=== PATIENT | male | born 2000 | race Caucasian/White ===

== ENCOUNTER 2025-01-12 23:15 | Emergency (ER) | payer OTHER, SELFPAY ==
--- NOTE | ~2025-01-12 | CT_ITS ---
EXAMINATION: CT abdomen pelvis wo con DATE: 01/13/2025 01:37 INDICATION: Right flank pain. TECHNIQUE: Computed tomography (CT) of the abdomen and pelvis was performed without intravenous contr ast. Automated exposure control and iterative reconstruction technique were employed. The dose-length product was 1910.46 mGy-cm. COMPARISON: None. FINDINGS: The visualized portions of the lung bases are clear without pneumonia or pleural effusion. The heart size is normal. No pericardial effusion. The liver, gallbladder, spleen, pancreas, and adre nal glands are normal. There is mild right hydronephrosis and hydroureter. There is a 4 mm stone in d istal right ureter. There is a 1 mm stone in left kidney. There are no dilated loops of bowel. The ap pendix is normal. There are no pathologically enlarged lymph nodes. There is no free intraperitoneal fluid. There is mild thoracic spondylosis and moderate lower lumbar spondylosis. IMPRESSION: 1. 4 mm stone in distal right ureter with mild right hydronephrosis and hydroureter. 2. 1 mm nonobstructing left kidney stone. Reviewed, dictated and finalized at location A. LET DISTRIBUTOR IMPRESSION: 1. 4 mm stone in distal right ureter with mild right hydronephrosis and hydrour eter. 2. 1 mm nonobstructing left kidney stone.
--- OUTSIDE RECORDS SUMMARY | 2025-01-12 23:18 | XMS_ITS | Referral Summary ---
Author Organization [facility] Address [address] [address] Care Team Providers Care Bilingual Customer Service Name Role Phone Darrell Graff MD Primary Care Provider [phone]- [phone] Source Comments [facility],non-owned Affiliates and Associated Physician Practices is amultiple site organization consisting of ambulatory clinics and hospital sitesin [place], [place], [place] and [place]. This disclosure is being madepursuant to the Care Everywhere program and may not contain all information available regarding this patient. Last updated 18.[facility] Allergies Active Allergy Reactions Criticality Noted Date Comments Apple Rash Medium 06/08/2018 Medications * Be aware that medications may not be up to date on this document. Alwaysverify current medications with the patient. Medication Sig Dispensed Refills Start Date End Date Status Fish Oil OIL Use. Active Active Problems Problem Noted Date Diagnosed Date Hypertriglyceridemia 06/10/2016 Hyperlipidemia 09/20/2013 Overview (09/20/2013): Elevated TG and LDL, instituting lifestyle changes Elevated liver enzymes 09/20/2013 Overview (09/20/2013): ALT 51, liver edge palpable Refer to GI Knee pain 11/27/2012 Social History Tobacco Use Types Packs/Day Years Used Date Smoking Tobacco: Never Smokeless Tobacco: Never Alcohol Use Standard Drinks/Week Comments Not Asked 0 (1 standard drink = 0.6 oz pur e alcohol) Sex and Gender Information Value Date Recorded Sex Assigned at Not on file Gender Identity Not on file Sexual Orientation Not on file Last Filed Vital Signs Vital Sign Reading Time Taken Comments Blood Pressure 122/82 06/08/2018 10:30 AM CDT Pulse 80 06/08/2018 10:30 AM CDT Temperature 36.8 C (98.2 F) 09/02/2016 9:30 PM CDT Respiratory Rate 20 06/08/2018 10:3 0 AM CDT Oxygen Saturation - - Inhaled Oxygen Concentration - - Weight 124.8 kg (275 lb 2.2 oz) 018 10:30 AM CDT Height 178.2 cm (5' 10.16 ) 06/08/2018 10:30 AM CDT Body Mass Index 39.3 06/08/2018 10:30 AM CDT Plan of Treatment Not on file Procedures Procedure Name Priority Date/Time Associated Diagnosis Comments HEPATITIS SCREEN ACUTE Routine 10/04/2013 3:17 PM DAYCARE MANAGER Elevated liver enzymes from Last 3 Months or Most Recently Relevant to Health Maintenance Results * HEPATITIS SCREEN ACUTE (10/04/2013 3:17 PM DAYCARE MANAGER) HAV Antibody IgM Non Reactive Non Reactive 10/04/2013 4:56 PM DAYCARE MANAGER [facility] HBsAg Non Reactive Non Reactive 10/04/2013 4:56 PM DAYCARE MANAGER [facility] HBsAb Non Reactive Non Reactive 10/04/2013 4:56 PM DAYCARE MANAGER [facility] HBc Antibody IgM Non Reactive Non Reactive 10/04/2013 4:56 PM DAYCARE MANAGER [facility] HCV Antibody Screen Non Reactive Non Reactive 10/04/2013 4:56 PM DAYCARE MANAGER [facility] Blood BLOOD SPECIMEN / Unknown Lab Venipuncture / Unknown 10/04/2013 3:17 PM DAYCARE MANAGER 10/04/2013 3:29 PM DAYCARE MANAGER Narrative [facility] - 10/04/2013 4:56 PM DAYCARE MANAGER Nonreactive - Antibodies to HCV were not detected, result does not exclude early acute HCV infection. Stevie Reed MD LAB - CHEMISTRY JUAN C GAGE [facility] [address] [place] [address] from Last 3 Months or Most Recently Relevant to Health Maintenance Care Teams Bilingual Customer Service Relationship Specialty Start Date End Date Darrell Graff MD [address] [place] [id number] PCP - General Pediatrics 10/13/12
--- OUTSIDE RECORDS SUMMARY | 2025-01-12 23:18 | XMS_ITS | Clinical Summary ---
Author Organization [facility] Address [address] [place] [address] Care Team Providers Care Manager Of Project Management Name Role Phone Darrell Graff MD Primary Care Provider +1- [phone] Source Comments [facility],non-owned Affiliates and Associated Physician Practices is amultiple site organization consisting of ambulatory clinics and hospital sitesin [place], [place], [place] and [place]. This disclosure is being madepursuant to the Care Everywhere program and may not contain all information available regarding this patient. Last updated 18.[facility] Allergies Active Allergy Reactions Criticality Noted Date [...] palpable Refer to GI Knee pain 11/27/2012 Family History Medical History Relation Name Comments Hyperlipidemia Father Hyperlipidemia Maternal Grandfather Hypertension Maternal Grandmother Hyperlipidemia Paternal Grandfather Hyperlipidemia Paternal Grandmother Relation Name Status Comments Father Maternal Grandfather Maternal Grandmother Paternal Grandfather Paternal Grandmother Social History Tobacco Use Types Packs/Day Years [...] 06/08/2018 10:30 AM CDT Plan of Treatment Health Maintenance Due Date Last Done Comments HIV SCREENING 2016 HPV VACCINE (1 - Male 3-dose series) 2016 MENINGOCOCCAL (Group B) VACC INE (1 of 2 - Standard) 2017 DTAP/TDAP/TD VACCINES (1 - Tdap) 2020 HEPATITIS B VACCINE (1 of 3 - 19+ 3-dose series) 2020 COVID-19 VACCINE (1 - 2023-2 5 season) 2024 INFLUENZA VACCINE (#1) 2024 DEPRESSION SCREENING 11/21/2024 ZOSTER VACCINE (1 of 2) 2051 HEPATITIS C SCREENING Completed 10/04/2013 HIB VACCINE Aged Out No longer eligi ble based on patient's age to complete this topic MENINGOCOCCAL VACCINE Aged Out No kellen katt eligible based on patient's age to complete this topic PNEUMOCOCCAL VACCINE Aged Out No long er eligible based on patient's age to complete this topic Procedures Procedure Name Priority Date/Time Associated Diagnosis Comments HEPATITIS SCREEN ACUTE Routine 10/04/2013 3:17 PM TELESALES SUPERVISOR Elevated liver enzymes from Last 3 Months or Most Recently Relevant to Health Maintenance Results * HEPATITIS SCREEN ACUTE (10/04/2013 3:17 PM TELESALES SUPERVISOR) HAV Antibody IgM Non Reactive Non Reactive 10/04/2013 4:56 PM TELESALES SUPERVISOR [facility] HBsAg Non Reactive Non Reactive 10/04/2013 4:56 PM TELESALES SUPERVISOR [facility] HBsAb Non Reactive Non Reactive 10/04/2013 4:56 PM [facility] HBc Antibody IgM Non Reactive Non Reactive 10/04/2013 4:56 PM [facility] HCV Antibody Screen Non Reactive Non Reactive 10/04/2013 4:56 PM [facility] Blood BLOOD SPECIMEN / Unknown Lab Venipuncture / Unknown 10/04/2013 3:17 PM TELESALES SUPERVISOR 10/04/2013 3:29 PM TELESALES SUPERVISOR Narrative [facility] - 10/04/2013 4:56 PM TELESALES SUPERVISOR Nonreactive - Antibodies to HCV were not detected, result does not exclude early acute HCV infection. Stevie Reed MD LAB - CHEMISTRY JUAN C GAGE [facility] [address] [place] [address] from Last 3 Months or Most Recently Relevant to Health Maintenance Care Teams Manager Of Project Management Relationship Specialty Start Date End Date Darrell Graff MD [address] [place] [address] [place] [id number] PCP - General Pediatrics 10/13/12
--- OUTSIDE RECORDS SUMMARY | 2025-01-12 23:18 | XMS_ITS | Clinical Summary ---
Author Organization [facility] Address [address] [place] [address] Care Team Providers Care Manager Camp Name Role Phone Unavailable Primary Care Provider Unavailabl e Allergies No known active allergies Social History Tobacco Use Types Packs/Day Years Used Date Smoking Tobacco: Never Smokeless Tobacco: Never Alcohol Use Standard Drinks/Week Comments No 0 (1 standard drink = 0.6 oz pur e alcohol) Sex and Gender Information Value Date Recorded Sex Assigned at Not on file Legal Sex Male 4:15 PM CDT Gender Identity Not on file Sexual Orientation Not on file Last Filed Vital Signs Vital Sign Reading Time Taken Comments Blood Pressure 146/69 08/05/2018 4:36 AM CDT Pulse 68 08/05/2018 4:36 AM CDT Temperature 37.1 C (98.8 F) 08/04/2018 11:11 PM CDT Respiratory Rate 16 08/05/2018 4:36 AM CDT Oxygen Saturation 100% 08/05/2018 4:36 AM CDT Inhaled Oxygen Concentration - - Weight 120.2 kg (265 lb) 08/04/2018 11:11 PM CDT Height 177.8 cm (5' 10 ) 08/04/2018 11:11 PM CDT Body Mass Index 38.02 08/04/2018 11:11 PM CDT Plan of Treatment Health Maintenance Due Date Last Done Comments Annual Physical 2004 PHQ-2 (Physician [place]) 2013 HPV Vaccines (1 - Male 3-dos e series) 2016 Meningococcal B Vaccine (1 o f 2 - Standard) 2017 Hepatitis C 2019 DTaP, Tdap and Td Vaccines ( 1 - Tdap) 2020 Hepatitis B Vaccines (1 of 3 - 19+ 3-dose series) 2020 COVID-19 Vaccine (1 - 2023-2 5 season) 2024 Influenza Adult (#1) 2024 PHQ-2 (Physician [place]) 11/21/2024 Meningococcal Vaccine Aged Out No kellen katt eligible based on patient's age to complete this topic Pneumococcal Vaccine: Pediat rics (0 to 5 Years) and At-Risk Patients (6 to 64 Years) Aged Out No longer eligible b ased on patient's age to complete this topic RSV Immunizations Under 20 Months Aged Out No longer eligible based on patient's age to complete this topic Insurance AETNA AETNA [address] [address]
--- OUTSIDE RECORDS SUMMARY | 2025-01-12 23:18 | XMS_ITS | Patient Health Summary ---
Author Organization [facility] Address [address] [place] [address] Care Team Providers Care Comber Fixer Name Role Phone Darrell Graff MD Primary Care Provider [phone] Note from [facility],non-owned Affiliates and Associated Physician Practices is amultiple site organization consisting of ambulatory clinics and hospital sitesin [place], [place], [place] and [place]. This disclosure is being madepursuant to the Care Everywhere program and may not contain all information available regarding this patient. Last updated 18.[facility] Allergies * Apple(Rash) -Medium Criticality Medications * Be aware that medications may not be up to date on this document. Alwaysverify current medications with the patient. * Fish Oil OIL Use. Active Problems Problem Noted Date Diagnosed Date Hypertriglyceridemia 06/10/2016 Hyperlipidemia 09/20/2013 Elevated liver enzymes 09/20/2013 Knee pain 11/27/2012 Social History Tobacco Use [...] Mass Index 39.3 06/08/2018 10:30 AM CDT Procedures * HEMOGLOBIN A1C - POCT (IP) BEAKER(Performed 06/08/2018) Performed for Familial hypercholesterolemia * LIPID PROFILE(Performed 06/08/2018) Performed for Familial hypercholesterolemia * COMPREHENSIVE METABOLIC PANEL(Performed 06/08/2018) Performed for Familial hypercholesterolemia * XR KNEE LEFT 2VW OR LESS(Performed 09/02/2016) Performed for Acute pain of left knee * LAB RESULTS ORDER(Performed 07/16/2016) * LAB RESULTS ORDER(Performed 12/04/2013) * US ABDOMEN LIMITED(Performed 10/12/2013) Performed for Elevated liver enzymes * LAB RESULTS ORDER(Performed 10/08/2013) * CBC W AUTO DIFFERENTIAL(Performed 10/06/2013) Performed for Knee pain, Hyperlipidemia, Elevated liver enzymes * IGA BLOOD(Performed 10/06/2013) Performed for Knee pain, Hyperlipidemia, Elevated liver enzymes * GGT(Performed 10/06/2013) Performed for Knee pain, Hyperlipidemia, Elevated liver enzymes * BILIRUBIN DIRECT(Performed 10/06/2013) Performed for Knee pain, Hyperlipidemia, Elevated liver enzymes * COMPREHENSIVE METABOLIC PANEL(Performed 10/06/2013) Performed for Knee pain, Hyperlipidemia, Elevated liver enzymes * C-REACTIVE PROTEIN(Performed 10/06/2013) Performed for Knee pain, Hyperlipidemia, Elevated liver enzymes * TSH(Performed 10/06/2013) Performed for Knee pain, Hyperlipidemia, Elevated liver enzymes * CK BLOOD(Performed 10/06/2013) Performed for Knee pain, Hyperlipidemia, Elevated liver enzymes * TISSUE TRANSGLUTAMINASE AB IGA(Performed 10/04/2013) Performed for Elevated liver enzymes * CERULOPLASMIN(Performed 10/04/2013) Performed for Elevated liver enzymes * PTT(Performed 10/04/2013) Performed for Elevated liver enzymes * PT-INR(Performed 10/04/2013) Performed for Elevated liver enzymes * HEPATITIS SCREEN ACUTE(Performed 10/04/2013) Performed for Elevated liver enzymes * SMOOTH MUSCLE ANTIBODY W REFLEX TITER(Performed 10/04/2013) Performed for Elevated liver enzymes * CAROL BLOOD SCREEN W/REFLEX TITER(Performed 10/04/2013) Performed for Elevated liver enzymes * MICROSOMAL ANTIBODY LIVER/KIDNEY(Performed 10/04/2013) Performed for Elevated liver enzymes * MVYVD-1-[id number] BLOOD(Performed 10/04/2013) Performed for Elevated liver enzymes * MRI LOWER EXT ANY JOINT NON CONTRAST RIGHT(Performed 11/08/2012) Performed for Knee pain * XR KNEE RIGHT 4VW OR MORE(Performed 10/23/2012) Performed for Knee pain * XR KNEE RIGHT 2VW OR LESS(Performed 10/13/2012) Results * HEMOGLOBIN A1C - POCT (IP) BEAKER (06/08/2018 10:42 AM CDT) Hemoglobin A1c POCT 5.2 3.4 - 6.1 % [facility] QC Verified Yes Yes [facility] PO CT TESTING Blood BLOOD SPECIMEN / Unknown 06/08/2018 10:42 AM CDT Sheri Katz MD LAB - POINT OF CARE ORDERABLES Performing Organization Address City/State/[facility] Co de Phone Number [facility] [address] [place] [address] * (ABNORMAL) COMPREHENSIVE METABOLIC PANEL (06/08/2018 10:37 AM CDT) Only the most recent of2 resultswithin the time period is included. Pathologist [facility] Glucose 80 70 - 105 mg/dL 06/08/2018 11:29 AM CDT [facility] Sodium 142 136 - 145 mmol/L 06/08/2018 11:29 AM CDT [facility] Potassium 4.3 3.5 - 5.1 mmol/L 06/08/2018 11:29 AM T [facility] Chloride 104 98 - 107 mmol/L 06/08/2018 11:29 AM T [facility] CO2 27 20 - 28 mmol/L 06/08/2018 11:29 AM CDT [facility] Calcium 10.29 9.08 - 10.48 mg/dL 06/08/2018 11:29 AM T [facility] Anion Gap 11 5 - 20 mmol/L 06/08/2018 11:29 AM T [facility] BUN 16.3 5.3 - 18.7 mg/dL 06/08/2018 11:29 AM [facility] Creatinine 0.81 0.61 - 1.07 mg/dL 06/08/2018 11:29 AM [facility] Alkaline Phosphatase 180 100 - 390 U/L 06/08/2018 11:29 AM [facility] ALT 85(H) 6 - 46 U/L 06/08/2018 11:29 AM [facility] AST 46(H) 3 - 35 U/L 06/08/2018 11:29 AM [facility] Protein Total 8.5(H) 6.3 - 8.2 gm/dL 06/08/2018 11:29 AM [facility] Albumin 4.8 3.3 - 4.9 gm/dL 06/08/2018 11:29 AM [facility] Bilirubin Total 0.6 0.3 - 1.2 mg/dL 06/08/2018 11:29 AM [facility] eGFR by MDRD mL/min/1.7 3m2 06/08/2018 11:29 AM [facility] Comment: eGFR calculations are not performed for children under 18 years old. eGFR by MDRD mL/min/1.7 3m2 06/08/2018 11:29 AM [facility] Comment: eGFR calculations are not performed for children under 18 years old. Blood BLOOD SPECIMEN / Unknown Venipuncture / Unknown 06/08/2018 10:37 AM CDT 06/08/2018 10:45 AM T Sheri Katz MD LAB - CHEMISTRY JUAN C GAGE [facility] Organization Address City/State/[facility] de Phone Number [facility] [address] [place] [address] * (ABNORMAL) LIPID PROFILE (06/08/2018 10:37 AM CDT) Cholesterol 253(H) <170 mg/dL 06/08/2018 11:30 AM [facility] Triglycerides 460(H) 46 - 227 mg/dL 06/08/2018 11:30 AM [facility] HDL Cholesterol 43 >40 mg/dL 8 11:30 AM [facility] LDL Calculated 118(H) <100 mg/dL 06/08/2018 11:30 AM CDT [facility] Comment: Unable to calculate LDL due to elevated Triglycerides, please consider ordering a Direct LDL. VLDL Calculated 92(H) 12 - 38 mg/dL 06/08/2018 11:30 AM CDT [facility] Comment: Unable to calculate LDL due to elevated Triglycerides, please consider ordering a Direct LDL. Chol HDL Ratio 5.9(H) <=5.0 06/08/2018 11:30 AM CDT [facility] Blood BLOOD SPECIMEN / Unknown Venipuncture / Unknown 06/08/2018 10:37 AM CDT 06/08/2018 10:45 AM CDT Narrative [facility] - 06/08/2018 11:30 AM CDT Lipid Profile Comment: Adult references ranges are the recommendation of the [place] [employer] , for those patients >18 years old. Cholestrol LDL Triglycerides HDL -- -- -- <40 Low <170 <100 <150 Desirable 170-199 130-159 150-199 Borderline High >200 160-189 200-499 >60 High Risk factor status for Coronary Artery Disease is necessary to place these lab findings in perspective. Note: This test is for fasting patients only. A non-fasting state may alter some of these results. Sheri Katz MD LAB - CHEMISTRY JUAN C GAGE [facility] Organization Address City/State/[facility] Co de Phone Number [facility] [address] [phone] * KNEE - LEFT (09/02/2016 7:48 PM CDT) Anatomical Region Laterality Modality Lower Extremity Radiographic Chelsea ging 09/03/2016 6:59 AM CDT Impressions 09/03/2016 7:01 AM CDT No acute osseous abnormality. Narrative 09/03/2016 7:01 AM CDT Exam: Left knee, 2 views HISTORY: 16-year-old male injured knee at football practice COMPARISON: Right knee radiographs 10/13/2012 FINDINGS: There is a small triangular bony outgrowth from the medial aspect of the distal femur. A similar-appearing outgrowth is seen on the distal right femur when reviewing the 2011 exam. The osseous structures are intact and well aligned. No joint effusion or focal soft tissue swelling is seen. The bone mineralization is normal. Procedure Note Katerin Antunez MD - 09/03/2016 Exam: Left knee, 2 views HISTORY: 16-year-old male injured knee at football practice COMPARISON: Right knee radiographs 10/13/2012 FINDINGS: There is a small triangular bony outgrowth from the medial aspect of the distal femur. A similar-appearing outgrowth is seen on the distal right femur when reviewing the 2011 exam. The osseous structures are intact and well aligned. No joint effusion or focal soft tissue swelling is seen. The bone mineralization is normal. IMPRESSION No acute osseous abnormality. Hawa Price MD DIAGNOSTIC IMAGING O RDERABLES * LAB RESULTS ORDER (07/16/2016 5:38 PM CDT) Only the most recent of3 resultswithin the time period is included. Narrative 07/16/2016 5:38 PM CDT Ordered by an unspecified provider. Scanned Document LAB - THERAPEUTIC DR JAY MONITORING ORDERABLES * US ABDOMEN LIMITED (10/12/2013 8:32 AM FUNDING COORDINATOR) Anatomical Region Laterality Modality Abdomen Ultrasound 10/12/2013 8:42 AM FUNDING COORDINATOR Impressions 10/12/2013 8:45 AM FUNDING COORDINATOR Normal right upper quadrant sonography. Narrative 10/12/2013 8:45 AM FUNDING COORDINATOR Right upper quadrant sonography dated 10/12/2013 8:32 AM. History: Elevated ALT, with right upper quadrant tenderness that is intermittent but has stopped recently. Multiple real-time sonographic images of the right upper quadrant are obtained. The tail the pancreas is suboptimally visualized due to overlying bowel gas. The head and body are grossly normal in size, though slightly echogenic. The liver parenchyma is normal in size and echogenicity without evidence of focal mass or intrahepatic biliary dilatation. The gallbladder is anechoic with no evidence of any wall thickening, stones, or pericholecystic fluid. The common bile duct measures 4 mm which is within normal limits. The visualized right kidney is grossly normal in appearance measuring 10.2 cm in length. Normal renal length for a 79-40-ztxn-old is 10.4 cm with a standard deviation of 0.9 cm the visualized great vessels appear grossly unremarkable. Procedure Note Duane Arzola MD - 10/12/2013 Right upper quadrant sonography dated 10/12/2013 8:32 AM. History: Elevated ALT, with right upper quadrant tenderness that is intermittent but has stopped recently. Multiple real-time sonographic images of the right upper quadrant are obtained. The tail the pancreas is suboptimally visualized due to overlying bowel gas. The head and body are grossly normal in size, though slightly echogenic. The liver parenchyma is normal in size and echogenicity without evidence of focal mass or intrahepatic biliary dilatation. The gallbladder is anechoic with no evidence of any wall thickening, stones, or pericholecystic fluid. The common bile duct measures 4 mm which is within normal limits. The visualized right kidney is grossly normal in appearance measuring 10.2 cm in length. Normal renal length for a 45-35-osmj-old is 10.4 cm with a standard deviation of 0.9 cm the visualized great vessels appear grossly unremarkable. IMPRESSION Normal right upper quadrant sonography. Stevie Reed MD US ORDERABLES * C-REACTIVE PROTEIN (10/06/2013 9:02 AM [facility]) Pathologist [facility] C-Reactive Protein <0.20 <=0.50 mg/dL 10/06/2013 9:34 AM [facility] Blood BLOOD SPECIMEN / Unknown Lab Venipuncture / Unknown 10/06/2013 9:02 AM FUNDING COORDINATOR 10/06/2013 9:07 AM [facility] Stevie Reed MD LAB - CHEMISTRY JUAN C GAGE [facility] Organization Address City/State/[facility] Co de Phone Number [facility] [address] [place] [address] * (ABNORMAL) CBC W AUTO DIFFERENTIAL (10/06/2013 9:02 AM [facility]) Pathologist [facility] WBC 3.8(L) 4.5 - 14.5 x10^9/L 10/06/2013 10:25 AM [facility] RBC 4.59 4.00 - 5.20 x10^12/L 10/06/2013 10:25 AM [facility] Hemoglobin 13.0 11.5 - 15.5 gm/dL 10/06/2013 10:25 AM [facility] Hematocrit 38.3 35.0 - 45.0 % 10/06/2013 10:25 AM [facility] MCV 83.4 77.0 - 95.0 fl 10/06/2013 10:25 AM [facility] MCH 28.3 25.0 - 33.0 pg 10/06/2013 10:25 AM [facility] MCHC 33.9 31.0 - 37.0 gm/dL 10/06/2013 10:25 AM [facility] Platelet Count 253 100 - 400 x10^9/L 10/06/2013 10:25 AM [facility] RDW-CV 12.8 11.5 - 14.0 % 10/06/2013 10:25 AM [facility] MPV 12.3(H) 6.0 - 9.5 fl 10/06/2013 10:25 AM [facility] Neutrophils % 38.1 24.0 - 66.0 % 10/06/2013 10:25 AM [facility] Lymphocytes % 49.6 22.0 - 61.0 % 10/06/2013 10:25 AM [facility] Monocytes % 7.0 3.0 - 15.0 % 10/06/2013 10:25 AM [facility] Eosinophils % 5.0 0.0 - 10.0 % 10/06/2013 10:25 AM [facility] Basophils % 0.3 % 10/06/2013 10:25 AM [facility] Immature Granulocytes 0.0 % 10/06/2013 10:25 AM [facility] Neutrophil Absolute 1.46 x10^9/L 10/06/2013 10:25 AM [facility] Lymphocytes Absolute 1.90 x10^9/L 10/06/2013 10:25 AM [facility] Monocytes Absolute 0.27 x10^9/L 10/06/2013 10:25 AM [facility] Eosinophils Absolute 0.19 x10^9/L 10/06/2013 10:25 AM [facility] Basophils Absolute 0.01 x10^9/L 10/06/2013 10:25 AM [facility] Immature Granulocytes Absolute 0.00 x10^9/L 10/06/2013 10:25 AM [facility] Blood BLOOD SPECIMEN / Unknown Lab Venipuncture / Unknown 10/06/2013 9:02 AM FUNDING COORDINATOR 10/06/2013 9:14 AM FUNDING COORDINATOR Stevie Reed MD LAB - HEMATOLOGY ORD ERAGAMALIEL [facility] [address] [place] [address] * GGT (10/06/2013 9:02 AM FUNDING COORDINATOR) GGT 28 8 - 69 U/L 10/06/2013 9:36 AM FUNDING COORDINATOR [facility] Blood BLOOD SPECIMEN / Unknown Lab Venipuncture / Unknown 10/06/2013 9:02 AM FUNDING COORDINATOR 10/06/2013 9:07 AM FUNDING COORDINATOR Stevie Reed MD LAB - CHEMISTRY JUAN C GAGE Performing Organization Address City/[facility] Co de Phone Number [facility] [address] [place] [address] * CK BLOOD (10/06/2013 9:02 AM FUNDING COORDINATOR) CK 121 30 - 200 U/L 10/06/2013 9:37 AM FUNDING COORDINATOR [facility] Blood BLOOD SPECIMEN / Unknown Lab Venipuncture / Unknown 10/06/2013 9:02 AM FUNDING COORDINATOR 10/06/2013 9:07 AM FUNDING COORDINATOR Stevie Reed MD LAB - CHEMISTRY JUAN C GAGE Performing Organization Address City/[facility]/ZIP Co de Phone Number [facility] [address] [place] [address] * BILIRUBIN DIRECT (10/06/2013 9:02 AM FUNDING COORDINATOR) Bilirubin Direct 0.16 0.11 - 0.54 mg/dL 10/06/2013 9:36 AM FUNDING COORDINATOR [facility] Blood BLOOD SPECIMEN / Unknown Lab Venipuncture / Unknown 10/06/2013 9:02 AM FUNDING COORDINATOR 10/06/2013 9:07 AM FUNDING COORDINATOR Stevie Reed MD LAB - CHEMISTRY JUAN C GAGE [facility] [address] [place] [address] * TSH (10/06/2013 9:02 AM FUNDING COORDINATOR) TSH 2.87 0.35 - 4.95 uIU/mL 10/06/2013 10:07 AM FUNDING COORDINATOR [facility] Blood BLOOD SPECIMEN / Unknown Lab Venipuncture / Unknown 10/06/2013 9:02 AM FUNDING COORDINATOR 10/06/2013 9:07 AM FUNDING COORDINATOR Stevie Reed MD LAB - CHEMISTRY ORDNehemias GAGE Performing Organization Address [facility] Co de Phone Number [facility] [address] [place] [address] * IGA BLOOD (10/06/2013 9:02 AM FUNDING COORDINATOR) Pathologist [facility] IgA 144 63 - 484 mg/dL 10/06/2013 9:36 AM FUNDING COORDINATOR [facility] Blood BLOOD SPECIMEN / Unknown Lab Venipuncture / Unknown 10/06/2013 9:02 AM FUNDING COORDINATOR 10/06/2013 9:07 AM FUNDING COORDINATOR Stevie Reed MD LAB - CHEMISTRY JUAN C GAGE Performing Organization Address [facility] de Phone Number [facility] [address] [place] [id number] * TISSUE TRANSGLUTAMINASE AB IGA (10/04/2013 3:33 PM FUNDING COORDINATOR) Tissue Transglutaminase (tTG) Ab, IgA 4 0 - 19 Units 10/06/2013 2:19 PM FUNDING COORDINATOR [facility] [employer] Comment: INTERPRETIVE INFORMATION: Tissue Transglutaminase (tTG) Antibody, IgA 19 Units or less: Negative 20-30 Units: Weak Positive 31 Units or greater: Moderate to Strong Positive Presence of the tissue transglutaminase (tTG) IgA antibody is associated with gluten-sensitive enteropathies such as celiac disease and dermatitis herpetiformis. tTG IgA antibody concentrations greater than or equal to 100 Units usually correlate with results of duodenal biopsies consistent with a diagnosis of celiac disease. For antibody concentrations greater than 20 Units but less than 100 Units, additional testing for endomysial (YULI) IgA concentrations may improve the positive predictive value for disease. Blood specimen (specimen) BLOOD SPECIMEN / Unknown Lab Venipuncture / Unknown 10/04/2013 3:33 PM FUNDING COORDINATOR 10/04/2013 3:48 PM FUNDING COORDINATOR Stevie Reed MD LAB - SEROLOGY ORDER JACOBY Performing Organization Address [facility] Co de Phone Number [facility] [address] [place] [address] * CERULOPLASMIN (10/04/2013 3:33 PM FUNDING COORDINATOR) Pathologist [facility] Ceruloplasmin 26 20 - 43 mg/dL 10/06/2013 10:25 AM FUNDING COORDINATOR [facility] Comment: REFERENCE INTERVAL: Ceruloplasmin Access complete set of age- and/or gender-specific reference intervals for this test in the [facility] Test Directory ([employer]). Blood specimen (specimen) BLOOD SPECIMEN / Unknown Lab Venipuncture / Unknown 10/04/2013 3:33 PM FUNDING COORDINATOR 10/04/2013 3:48 PM FUNDING COORDINATOR Stevie Reed MD LAB - CHEMISTRY ORDE RABLES Performing Organization Address [facility] de Phone Number [facility] [address] [place] [address] * F-ACTIN (SMOOTH MUSCLE) ANTIBODY W REFLEX TITER (10/04/2013 3:17 PM FUNDING COORDINATOR) Pathologist [facility] F-Actin Antibody IgG 9 0 - 19 Units 10/06/2013 3:35 PM FUNDING COORDINATOR [facility] Comment: If F-Actin (Smooth Muscle) Antibody, IgG is negative, the Smooth Muscle Antibody titer by IFA is not performed. INTERPRETIVE INFORMATION: F-Actin (Smooth Muscle) Antibody, IgG by CARLITOS 19 Units or less ....... Negative 20 - 30 Units .......... Weak Positive-Suggest repeat testing in two to three weeks with fresh specimen. 31 Units or greater..... Positive-Suggestive of autoimmune hepatitis type 1 or chronic active hepatitis. F-actin antibodies have been shown to have greater sensitivity and specificity for autoimmune liver disease than anti-smooth muscle antibodies. Blood specimen (specimen) BLOOD SPECIMEN / Unknown Lab Venipuncture / Unknown 10/04/2013 3:17 PM FUNDING COORDINATOR 10/04/2013 3:29 PM FUNDING COORDINATOR Stevie Reed MD LAB - SEROLOGY ORDER JACOBY [facility] [address] [place] [address] * CAROL BLOOD SCREEN W/REFLEX TITER (10/04/2013 3:17 PM FUNDING COORDINATOR) CAROL Negative Negative 10/05/2013 9:52 AM FUNDING COORDINATOR [facility] Blood BLOOD SPECIMEN / Unknown Lab Venipuncture / Unknown 10/04/2013 3:17 PM FUNDING COORDINATOR 10/04/2013 3:29 PM FUNDING COORDINATOR Stevie Reed MD LAB - CHEMISTRY ORDE RABLORA Performing Organization Address City/[facility]/ZIP Co de Phone Number [facility] [address] [place] [address] * MICROSOMAL ANTIBODY LIVER/KIDNEY (10/04/2013 3:17 PM FUNDING COORDINATOR) Liver/Kidney Microsomal Antibody IgG <1:20 <1:20 10/06/2013 4:41 PM FUNDING COORDINATOR [facility] Comment: INTERPRETIVE INFORMATION: Vvubz-Exrdav-Crpiqlbjf Abs, IgG Liver-Kidney Microsome IgG antibody (anti-LKM), as detected by indirect immunofluorescent antibody (IFA) techniques, may be observed in patients with autoimmune hepatitis type 2 (AIH-2), AIH-2 associated with autoimmune azazapqiyqqqbactua-uacvtozsbdw-cqbevolhcx dystrophy (APECED), viral hepatitis C or D, and some forms of drug-induced hepatitis. This IFA does not differentiate among the four types of LKM antibodies (LKM-1, LKM-2, LKM-3, and a fourth type that recognizes CY and CY antigens). Of these, anti-LKM-1 (cytochrome [id number]) IgG antibodies are considered specific for AIH-2. Test developed and characteristics determined by [facility] [employer]. See Compliance Statement D: [employer]/CS Blood specimen (specimen) BLOOD SPECIMEN / Unknown Lab Venipuncture / Unknown 10/04/2013 3:17 PM FUNDING COORDINATOR 10/04/2013 3:29 PM FUNDING COORDINATOR Stevie Reed MD LAB - CHEMISTRY JUAN C GAGE Performing Organization Address [facility] Co de Phone Number [facility] [address] [place] [address] * [id number] BLOOD (10/04/2013 3:17 PM FUNDING COORDINATOR) Irqnm-9-Kebhne ypsin 127 100 - 200 mg/dL 10/06/2013 9:24 AM FUNDING COORDINATOR [facility] [employer] Comment:To convert to umol/L , multiply mg/dL by 0.185 Blood specimen (specimen) BLOOD SPECIMEN / Unknown Lab Venipuncture / Unknown 10/04/2013 3:17 PM FUNDING COORDINATOR 10/04/2013 3:29 PM FUNDING COORDINATOR Stevie Reed MD LAB - CHEMISTRY JUAN C GAGE Performing Organization Address [facility] Co de Phone Number [facility] [address] [place] [address] * PTT (10/04/2013 3:17 PM FUNDING COORDINATOR) PTT 29.0 23.0 - 36.0 sec 10/04/2013 3:56 PM FUNDING COORDINATOR [facility] Blood BLOOD SPECIMEN / Unknown Lab Venipuncture / Unknown 10/04/2013 3:17 PM FUNDING COORDINATOR 10/04/2013 3:29 PM FUNDING COORDINATOR Stevie Reed MD LAB - COAGULATION OR DERABLES Performing Organization Address City/[facility] Co de Phone Number [facility] [address] [place] [address] * PT-INR (10/04/2013 3:17 PM FUNDING COORDINATOR) PT 12.8 12.2 - 14.5 sec 10/04/2013 3:56 PM FUNDING COORDINATOR [facility] INR 1.0 0.8 - 1.2 10/04/2013 3:56 PM FUNDING COORDINATOR [facility] Blood BLOOD SPECIMEN / Unknown Lab Venipuncture / Unknown 10/04/2013 3:17 PM FUNDING COORDINATOR 10/04/2013 3:29 PM FUNDING COORDINATOR Stevie Reed MD LAB - COAGULATION OR DERABLES Performing Organization Address [facility] Co de Phone Number [facility] [address] [place] [address] * HEPATITIS SCREEN ACUTE (10/04/2013 3:17 PM FUNDING COORDINATOR) HAV Antibody IgM Non Reactive Non Reactive 10/04/2013 4:56 PM FUNDING COORDINATOR [facility] HBsAg Non Reactive Non Reactive 10/04/2013 4:56 PM FUNDING COORDINATOR [facility] HBsAb Non Reactive Non Reactive 10/04/2013 4:56 PM FUNDING COORDINATOR [facility] HBc Antibody IgM Non Reactive Non Reactive 10/04/2013 4:56 PM FUNDING COORDINATOR [facility] HCV Antibody Screen Non Reactive Non Reactive 10/04/2013 4:56 PM FUNDING COORDINATOR [facility] Blood BLOOD SPECIMEN / Unknown Lab Venipuncture / Unknown 10/04/2013 3:17 PM FUNDING COORDINATOR 10/04/2013 3:29 PM FUNDING COORDINATOR Narrative [facility] - 10/04/2013 4:56 PM FUNDING COORDINATOR Nonreactive - Antibodies to HCV were not detected, result does not exclude early acute HCV infection. Stevie Reed MD LAB - CHEMISTRY ORDE RABLES Performing Organization Address [facility] Co de Phone Number [facility] [address] [place] [address] * MRI LOWER EXT ANY JOINT NON CONTRAST RIGHT (11/08/2012 6:28 PM FUNDING COORDINATOR) Anatomical Region Laterality Modality Lower Extremity Magnetic Resonan ce 11/09/2012 9:24 AM FUNDING COORDINATOR Impressions 11/09/2012 9:24 AM FUNDING COORDINATOR 1. Small benign appearing osteochondroma arising from the medial aspect of the distal femoral diametaphysis. 2. Small Mansfield's cyst. Narrative 11/09/2012 9:24 AM FUNDING COORDINATOR MRI of the right knee performed November 08, 2012. History: Medial right knee pain. Axial, coronal and sagittal fat-suppressed proton density, sagittal T2, coronal proton density, and angled coronal T2 weighted sequences were obtained. Comparison is made with prior radiographs of the knee dated October 23, 2012. There is a small osteochondroma arising from in medial aspect of the distal femoral diametaphysis. The osteochondroma has a thin (4mm) intact cartilaginous cap which is not associated with a surrounding soft tissue mass. The osteochondroma measures 1.1 cm in height. There is no evidence of subcutaneous edema superficial to this osteochondroma. There is a small Mansfield's cyst measuring 1.1 x 0.4 x 0.6 cm in size. There is however no evidence of a significant knee effusion. The medial and lateral collateral ligaments as well as the anterior and posterior cruciate ligaments are intact. The medial and lateral menisci are intact. The articular cartilage is intact. There is no evidence of a subchondral lesion. No areas of marrow signal abnormality are appreciated. The popliteal vessels are patent. Procedure Note Kaya Pinzon MD - 11/09/2012 MRI of the right knee performed November 08, 2012. History: Medial right knee pain. Axial, coronal and sagittal fat-suppressed proton density, sagittal T2, coronal proton density, and angled coronal T2 weighted sequences were obtained. Comparison is made with prior radiographs of the knee dated October 23, 2012. There is a small osteochondroma arising from in medial aspect of the distal femoral diametaphysis. The osteochondroma has a thin (4mm) intact cartilaginous cap which is not associated with a surrounding soft tissue mass. The osteochondroma measures 1.1 cm in height. There is no evidence of subcutaneous edema superficial to this osteochondroma. There is a small Mansfield's cyst measuring 1.1 x 0.4 x 0.6 cm in size. There is however no evidence of a significant knee effusion. The medial and lateral collateral ligaments as well as the anterior and posterior cruciate ligaments are intact. The medial and lateral menisci are intact. The articular cartilage is intact. There is no evidence of a subchondral lesion. No areas of marrow signal abnormality are appreciated. The popliteal vessels are patent. IMPRESSION 1. Small benign appearing osteochondroma arising from the medial aspect of the distal femoral diametaphysis. 2. Small Mansfield's cyst. Marquez Ramírez MD MR ORDERABLES * XR KNEE 4+ VW RIGHT (10/23/2012 1:49 PM FUNDING COORDINATOR) Anatomical Region Laterality Modality Lower Extremity Radiographic [place] ging 10/23/2012 1:55 PM FUNDING COORDINATOR Impressions 10/23/2012 3:26 PM FUNDING COORDINATOR No acute fracture or subluxation. Medial osteochondroma of the distal femur. Report dictated by Reynaldo Mora MD. Narrative 10/23/2012 3:26 PM FUNDING COORDINATOR Examination: Right knee, 4 views Date: October 23, 2012 History: Knee pain Findings: Comparison is made with study dated October 13, 2012. A bony spicule projecting from the medial femoral epicondyle is most consistent with an osteochondroma. No acute fracture subluxation is seen. The joint spaces and soft tissues are normal. Procedure Note Duane Arzola - 10/23/2012 Examination: Right knee, 4 views Date: October 23, 2012 History: Knee pain Findings: Comparison is made with study dated October 13, 2012. A bony spicule projecting from the medial femoral epicondyle is most consistent with an osteochondroma. No acute fracture subluxation is seen. The joint spaces and soft tissues are normal. IMPRESSION No acute fracture or subluxation. Medial osteochondroma of the distal femur. Report dictated by Reynaldo Mora MD. Marquez Ramírez MD DIAGNOSTIC IMAGING O RDERABLES * XR KNEE 1 OR 2 VW RIGHT (10/13/2012 2:25 PM FUNDING COORDINATOR) Anatomical Region Laterality Modality Lower Extremity Radiographic [place] ging 10/13/2012 6:29 PM FUNDING COORDINATOR Impressions 10/13/2012 6:29 PM FUNDING COORDINATOR No osseous abnormality This small joint effusion. Narrative 10/13/2012 6:29 PM FUNDING COORDINATOR Right knee, 2 views 10/13/2012 Small joint effusion is present. There is no fracture, dislocation, or abnormal bone production or distraction. Procedure Note Darrell Palafox MD - 10/13/2012 Right knee, 2 views 10/13/2012 Small joint effusion is present. There is no fracture, dislocation, or abnormal bone production or distraction. IMPRESSION No osseous abnormality This small joint effusion. Vishnu Diehl MD DIAGNOSTIC IMAGING ORDERABLES Care Teams Comber Fixer Relationship Specialty Start Date End Date Darrell Graff MD [address] [place] [address] [place] [phone] PCP - General Pediatrics 10/13/12
[2025-01-12 23:20] VITALS: BP 165/109; PULSE 87; RESP 16; TEMP 36.6; O2SAT 100
[2025-01-12 23:39] LABS: Basophils Absolute Auto 0.1 K/mm3 (0.0-0.1); Basophils Percent Auto 0.4 % (0.2-1.2); Eosinophils Absolute Auto 0.2 K/mm3 (0-0.3); Eosinophils Percent Auto 1.9 % (0-4.4); Hematocrit 43.6 % (42.0-52.0); Hemoglobin 14.7 g/dL (14.0-18.0); Immature Granulocyte Absolute 0.03 K/mm3 (0.00-0.031); Immature Granulocyte Percent A 0.3 % (0-0.5); Lymphocytes Absolute Auto 4.29 K/mm3 (0.9-3.2); Lymphocytes Percent Auto 37.6 % (18.3-44.2); Mean Corpuscular HGB Conc 33.7 g/dl (32-36); Mean Corpuscular Hemoglobin 29.3 pg (26-34); Mean Corpuscular Volume 86.9 fl (80-100); Mean Platelet Volume 11.2 fl (7.4-10.4); Monocytes Percent Auto 8.5 % (2.6-8.5); Neutrophils Absolute Auto 5.8 K/mm3 (1.3-6.7); Neutrophils Percent Auto 51.3 % (45.5-73.1); Platelet Count Result 259 k/mm3 (150-375); Red Blood Count 5.02 M/mm3 (4.6-6.20); Red Cell Distribution Width 12.2 % (11.5-14.5); White Blood Count 11.4 K/mm3 (4.5-10.0)
[2025-01-12 23:57] LABS: Alanine Aminotransferase 77 U/L (6-50); Albumin Level 4.6 g/dL (3.5-5.1); Alkaline Phosphatase 118 U/L (38-126); Anion Gap 14 mmol/L (4-12); Aspartate Amino Transferase 41 U/L (17-59); Bilirubin,Total 0.5 mg/dL (0.2-1.3); Blood Urea Nitrogen 23 mg/dL (9-20); Calcium 9.7 mg/dL (8.4-10.2); Carbon Dioxide 25 mmol/L (22-30); Chloride 102 mmol/L (98-107); Estimated CRCL calculation 135 ml/min; Estimated Glomerular Filt Rate > 60; Glucose 98 mg/dL (65-110); Potassium 4.4 mmol/L (3.4-5.0); Sodium 141 mmol/L (137-145)
[2025-01-13 00:16] LABS: Add Urine Microscopic? YES; Appearance Urine Clear (Clear); Bacteria Urine None Seen /hpf; Bilirubin Urine Negative (Negative); Blood Urine 2+ (Negative); Color Urine Yellow (Yellow); Glucose Urine UA Negative (Negative); Ketones Urine Negative (Negative); Leukocyte Esterase Ur Negative LEU/UL (Negative); Nitrate Urine Negative (Negative); Non Pathogenic Casts 0-2; Protein Urine Negative (Negative); Specific Grav Ur 1.029 (1.001-1.035); Squamous Epithelial Cell Urine None Seen /hpf (Few); Urobilinogen Urine 0.2 mg/dL (<2.0); WBC Urine 0-5 /hpf (0-3); pH Urine 5.5 (5.0-9.0)
[2025-01-13 02:22] VITALS: BP 151/93; PULSE 80; RESP 14; O2SAT 99
--- NOTE | 2025-01-13 02:40 | ED.ABDPAIN ---
HPI - Abdominal Pain General Chief Complaint: Abdominal Pain Stated Complaint: ABDOMEN PAIN Time Seen by Provider: 01/13/25 02:34 History of Present Illness HPI narrative: Patient is a 24-year-old male who presents to the emergency department this evening complaining of right-sided flank pain radiating to his right lower quadrant. Patient states that he woke up with a dull right-sided flank pain which has progressively worsened throughout the day and radiated to his right lower quadrant. Denies any similar symptoms in the past, denies any previous abdominal surgeries and denies any history of kidney stones. Patient also denies any dysuria or hematuria. Denies any recent illness, fevers or chills. No additional symptoms or concerns at this time. Related Data Allergies Allergy/AdvReac Type Severity Reaction Status Date / Time No Known Allergies Allergy Verified 01/12/25 23:18 Review of Systems Review of Systems: All systems are reviewed and are negative unless stated otherwise in the HPI. Exam Narrative: General: Alert, awake, afebrile, in mild distress secondary to pain. HEENT: PERRL, no rhinorrhea, no post nasal drip, oropharynx clear. Neck: Trachea midline, no JVD, no lymphadenopathy. Cardiovascular: Regular rate and rhythm, no murmurs, rubs or gallops, no peripheral edema. Respiratory: Clear to auscultation bilaterally, no tachypnea, no wheezing, no rhonchi, no rubs, no respiratory distress. Abdomen: Soft, nontender, nondistended, no rebound, no guarding, no peritoneal signs. Musculoskeletal: No joint swelling or deformity, normal muscle tone. Skin: No rashes or petechia, no signs of infection. Psychiatric: Alert and oriented, normal behavior and judgment for situation. Neurological: Alert and oriented to person, place, and time. Follows all commands. No focal deficits, speech is clear and fluent. Course Vital Signs Vital signs: Vital Signs Temperature 97.8 F 01/12/25 23:20 Pulse Rate 87 01/12/25 23:20 Respiratory Rate 16 01/12/25 23:20 Blood Pressure 165/109 H 01/12/25 23:20 Pulse Oximetry 100 01/12/25 23:20 Oxygen Delivery Room Air 01/12/25 23:20 Temperature 97.8 F 01/12/25 23:20 Pulse Rate 80 01/13/25 02:22 Respiratory Rate 14 01/13/25 02:22 Blood Pressure 151/93 H 01/13/25 02:22 Pulse Oximetry 99 01/13/25 02:22 Oxygen Delivery Room Air 01/12/25 23:20 MDM - Abdominal Pain MDM Narrative Medical decision making narrative: The patient was evaluated by myself in the emergency department. History is obtained from patient who is an independent historian and physical exam was performed. External medical records were reviewed at this time. IV was established and pertinent tests were ordered. Patient was administered 15 mg of IV Toradol for pain and 4 mg of IV Zofran for nausea. Laboratory results obtained revealing no acute process. Urinalysis revealed 2+ blood and 6-10 rbc's. Imaging studies obtained included CT abdomen pelvis without IV contrast which was independently interpreted by me revealing 4-5 mm stone in the right distal ureter with mild right-sided hydroureteronephrosis and moderate perinephric fat stranding, mild splenomegaly, small fat containing umbilical hernia otherwise no acute process, normal appendix. Differential diagnosis considerations include kidney stones, appendicitis, cystitis, diverticulitis, cholecystitis. Comorbidities impacting this visit include none. I have evaluated and discussed social determinants of health with the patient that could potentially impact subsequent diagnosis and treatment plans. On repeat assessment of the patient, reevaluation revealed that the patient is doing well and is in no acute distress. Patient symptoms have improved since he arrived to our emergency department. Repeat vital signs were all reviewed and noted to be stable. Differential diagnosis and treatment plan were discussed with the patient at bedside. Patient agrees with discussion and after shared medical decision making agrees with discharge. All questions were answered to the patient's satisfaction. Patient will follow up with Urology in 3-5 days. Scripts for [place], ibuprofen, Zofran and Flomax were sent to patient's pharmacy to use as prescribed to help pass his kidney stone and he was provided with a urine strainer in the emergency department. Patient was provided with strict return precautions and instructed to return to the emergency department if any new or worsening symptoms develop. The patient was discharged in stable condition. Lab Data 01/12/25 23:32 01/12/25 23:32 Labs: Lab Results 01/12/25 Range/Units 23:32 WBC 11.4 H (4.5-10.0) K/mm3 RBC 5.02 (4.6-6.20) M/mm3 Hgb 14.7 (14.0-18.0) g/dL Hct 43.6 (42.0-52.0) % MCV 86.9 (80-100) fl MCH 29.3 (26-34) pg MCHC 33.7 (32-36) g/dl RDW 12.2 (11.5-14.5) % Plt Count 259 (150-375) k/mm3 MPV 11.2 H (7.4-10.4) fl Immature Gran % (Auto) 0.3 (0-0.5) % Neut % (Auto) 51.3 (45.5-73.1) % Lymph % (Auto) 37.6 (18.3-44.2) % Pershing % (Auto) 8.5 (2.6-8.5) % Eos % (Auto) 1.9 (0-4.4) % Baso % (Auto) 0.4 (0.2-1.2) % Lymph # (Auto) 4.29 H (0.9-3.2) K/mm3 Pershing # (Auto) 1.0 H (0.1-0.6) K/mm3 Eos # (Auto) 0.2 (0-0.3) K/mm3 Baso # (Auto) 0.1 (0.0-0.1) K/mm3 Abs Immat Gran (auto) 0.03 (0.00-0.031) K/mm3 Absolute Neuts (auto) 5.8 (1.3-6.7) K/mm3 Absolute Nucleated RBC 0.000 (0.0-0.012) K/mm3 Nucleated RBC % 0.0 (0.0-0.2) % Sodium 141 (137-145) mmol/L Potassium 4.4 (3.4-5.0) mmol/L Chloride 102 (98-107) mmol/L Carbon Dioxide 25 (22-30) mmol/L Anion Gap 14 H (4-12) mmol/L BUN 23 H (9-20) mg/dL Creatinine 1.11 (0.7-1.3) mg/dL Estim Creat Clear Calc 135 ml/min Estimated GFR > 60 (59 - ) Glucose 98 (65-110) mg/dL Calcium 9.7 (8.4-10.2) mg/dL Total Bilirubin 0.5 (0.2-1.3) mg/dL AST 41 (17-59) U/L ALT 77 H (6-50) U/L Alkaline Phosphatase 118 (38-126) U/L Total Protein 8.0 (6.3-8.2) g/dL Albumin 4.6 (3.5-5.1) g/dL Urine Color Yellow (Yellow) Urine Appearance Clear (Clear) Urine pH 5.5 (5.0-9.0) Ur Specific [place] 1.029 (1.001-1.035) Urine Protein Negative (Negative) mg/dL Urine Glucose (UA) Negative (Negative) mg/dL Urine Ketones Negative (Negative) mg/dL Ur Blood (Man) 2+ H (Negative) Urine Nitrate Negative (Negative) Urine Bilirubin Negative (Negative) Urine Urobilinogen 0.2 (<2.0) mg/dL Leukocyte Esterase Rfl Negative (Negative) CASANDRA/UL Urine RBC 6-10 H (0-2) /hpf Urine WBC 0-5 (0-3) /hpf Ur Squamous Epith Cells None seen (Few) /hpf Urine Bacteria None seen /hpf Urine Casts 0-2 Discharge Plan Discharge Clinical Impression: Kidney stone on right side, Hydronephrosis, right Patient Disposition: Home, Self-Care Condition: Improved Instructions: Antibiotic Form, Kidney Stones (ED), Flank Pain (ED) Additional Instructions: Please follow-up with urologist your provided wit today within the next 3-5 days. Take the prescribed medications as instructed to help passed 2 kidney stone. Return to the ED if any new or worsening symptoms develop. Patient Language: Tajik Prescriptions: New hydrocodone-acetaminophen 5-325 mg tablet 1 tablet PO Q8H PRN (Reason: pain) Qty: 14 0RF tamsulosin [Flomax] 0.4 mg capsule 0.4 mg PO HS Qty: 14 0RF ondansetron 4 mg tablet,disintegrating 4 mg PO Q6H PRN (Reason: nausea and vomiting) Qty: 14 0RF ibuprofen 400 mg tablet 400 mg PO TID PRN (Reason: pain) Qty: 20 0RF Follow-up/Referrals: Richar Mei MD [Physician] - 3 Days UNKNOWN,DOCTOR [Primary Care Provider] - Stand Alone Forms: Work/School Release IP Time of Disposition: 02:36
[2025-01-13] MEDS: ONDANSETRON INJ 4 MG/2 ML VIAL IV PUSH (02:47)
[2025-01-13] MEDS: KETOROLAC 15 MG/ML VIAL (*BKC) IV PUSH (02:48)
--- OUTSIDE RECORDS SUMMARY | 2025-01-13 03:02 | XMS_ITS | Clinical Summary ---
Author Organization [facility] Address [address] [place] [address] Care Team Providers Care Consulting Hr Professional Name Role Phone Unavailable Primary Care Provider [...] Done Comments Annual Physical 2004 PHQ-2 (Physician [place]) 2013 HPV Vaccines (1 - Male 3-dos e series) 2016 Meningococcal B Vaccine (1 o f 2 - Standard) 2017 Hepatitis C 2019 DTaP, Tdap and Td Vaccines ( 1 - Tdap) 2020 Hepatitis B Vaccines (1 of 3 - 19+ 3-dose series) 2020 COVID-19 Vaccine (1 - 2023-2 5 season) 2024 Influenza Adult (#1) 2024 PHQ-2 (Physician [place]) 11/21/2024 Meningococcal Vaccine Aged Out No kellen [...] complete this topic Insurance AETNA AETNA [address] [place] [id number]
--- OUTSIDE RECORDS SUMMARY | 2025-01-13 03:02 | XMS_ITS | Referral Summary ---
Author Organization [facility] Address [address] [place] [address] Care Team Providers Care Catering Administrative Assistant Name Role Phone Darrell Graff MD Primary Care Provider [phone] [facility],non-owned Affiliates and Associated Physician Practices is amultiple site organization consisting of ambulatory clinics and hospital sitesin [place], [place], [place] and [place]. This disclosure is being madepursuant to the Care Everywhere program and may not contain all information available regarding this patient. Last updated 18.[facility] Allergies Active Allergy Reactions Criticality Noted Date [...] HEPATITIS SCREEN ACUTE Routine 10/04/2013 3:17 PM STUD DRIVER Elevated liver enzymes from Last 3 Months or Most Recently Relevant to Health Maintenance Results * HEPATITIS SCREEN ACUTE (10/04/2013 3:17 PM STUD DRIVER) HAV Antibody IgM Non Reactive Non Reactive 10/04/2013 4:56 PM STUD DRIVER [facility] HBsAg Non Reactive Non Reactive 10/04/2013 4:56 PM STUD DRIVER [facility] HBsAb Non Reactive Non Reactive 10/04/2013 4:56 PM STUD DRIVER [facility] HBc Antibody IgM Non Reactive Non Reactive 10/04/2013 4:56 PM STUD DRIVER [facility] HCV Antibody Screen Non Reactive Non Reactive 10/04/2013 4:56 PM STUD DRIVER [facility] Blood BLOOD SPECIMEN / Unknown Lab Venipuncture / Unknown 10/04/2013 3:17 PM STUD DRIVER 10/04/2013 3:29 PM STUD DRIVER Narrative [facility] - 10/04/2013 4:56 PM STUD DRIVER Nonreactive - Antibodies to HCV were not detected, result does not exclude early acute HCV infection. Stevie Reed MD LAB - CHEMISTRY JUAN C GAGE [facility] [address] [place] [address] from Last 3 Months or Most Recently Relevant to Health Maintenance Care Teams Catering Administrative Assistant Relationship Specialty Start Date End Date Darrell Graff MD [address] [place] [id number] PCP - General Pediatrics 10/13/12
--- OUTSIDE RECORDS SUMMARY | 2025-01-13 03:02 | XMS_ITS | Data Portability ---
Author Organization [facility], [employer] Address [address] [place] [address] Assessment No assessment recorded. Plan of Treatment Reminders Order Date Submit Date Provider Last Modified By Organization Details Last Modified Time Details Appointments None recorded. Lab None recorded. Referral None recorded. Procedures None recorded. Surgeries None recorded. Imaging None recorded. Medication Orders prednisone 20 mg tablet 2021 [facility], [address] [place] [address], [address], 16:33:09 azithromyci n 250 mg tablet 2021 [facility] [address] [employer], [address] [place], [address], 16:25:44 Advair Diskus 250 mcg-50 mcg/dose powder for inhalation 2021 [facility] [address] [employer], [address] [place], [address], 16:25:43 Patient TargetsNo targets recorded. Patient Instructions Encounter Date Encounter Id Patient Instructions Last Modified By Organization Details Last Modified Time 03/10/2022 [id number] fu early next week not better Not available 03/10/2022 16:26:24 discussed se of abx discussed otc med discussed in detail when to rtc answered Yuval's questions Not available 03/10/2022 16:26:17 11/08/2022 [id number] Oral steroid as prescribed Rest if activity is causing shortness of breath Ensure adequate hydration To ED if difficulty breathing Follow up with office if no improvement within 7-10 days of starting Albuterol Contact office with questions or concerns elviaesamirah Not available 11/08/2022 16:39:03 Lungs CTA bilaterally, no distress TMs clear bilaterally Suspect URI with secondary persistent cough. Will treat with oral steroid to reduce the frequency and severity of cough Treatment guidelines discussed. Follow up and ED criteria reviewed. [email or web address] Not available 11/08/2022 16:44:37 Reason for Referral None Reported. Problems Name Problem SNOMED Code Status Onset Date Resolution Date Notes Provider Name and Address Organization Details Recorded Time Hyperlipide nicole 47723786 Active 2012 Hyperlipi demia; Comments: Referred to cardiolog y/lipid clinic Amirah dunlap: Reena Nolen dDate: 3 3:30 PM Not Available [facility] 1 03:05:45 Problem Notes None recorded. Medical Equipment None Reported. Medications Name Sig Start Date Stop Date Status Note LastModified by Organization Details LastModified Time buspirone 5 mg tablet TAKE 1 TABLET BY MOUTH THREE TIMES DAILY WITH A MEAL active Not Available Not Available No t Available azithromyci n 250 mg tablet TAKE 2 TABLETS BY MOUTH TODAY, THEN TAKE 1 TABLET DAILY FOR 4 DAYS active Not Available Not Available No t Available prednisone 20 mg tablet 3tabs daily x3 days active Not Available Not Available No t Available amoxicillin 875 mg tablet TAKE 1 TABLET BY MOUTH TWICE A DAY 03/10 completed Not Available Not Available Not Available cephalexin 500 mg capsule TAKE 1 CAPSULE BY MOUTH TWICE A DAY 03/10 completed Not Available Not Available Not Available fluticasone propionate 50 mcg/actuati on nasal spray,suspe nsion TAKE 1 SPRAY(S) INTRANASA LLY 2 TIMES A DAY, NEEDED 03/10 completed Not Available Not Available Not Available escitalopra m 20 mg tablet TAKE 1 TABLET BY MOUTH ONCE DAILY IN THE MORNING active Not Available Not Available No t Available Wixela Inhub 250 mcg-50 mcg/dose powder for inhalation INHALE 1 PUFF INTO THE LUNGS TWICE A DAY FOR 30 DAYS active Not Available Not Available No t Available BinaxNOW COVID-19 Ag Self Test kit Use as Directed on the Package active Not Available Not Available No t Available Vitals Date Recorded Body temperature Body weight Provider N michael and Address Organization Details Last Updated DateTime 03/10/2022 97.1 [degF] 031066.62 g [facility] 03/10/2022 15:46:43 Date Recorded Heart rate Oxygen saturation Oxygen saturation in Arterial blood by Pulse oximetry Provider Name and Address Organization Details Last Updated DateTime 03/10/2022 97 /min 98 % 98 % Delonte Ross, DO [address], [place], [address], [facility] 03/10/2022 16:20:59 Date Recorded Body temperature Body weight Provider N michael and Address Organization Details Last Updated DateTime 11/08/2022 97.6 [degF] 146694.48 g [facility] 11/08/2022 16:14:51 Social History None recorded. Functional Status None recorded. Mental Status None recorded. Family History Nothing Reported Notes:-father/grandparents: family history of cholesterol problems, family history of cholesterol problems, family history of cholesterol problems, family history of cholesterol problems -grandparents: family history of hypertension, family history of hypertension, family history of hypertension, family history of hypertension Medical History No medical history recorded. Immunizations Vaccine Type Date Status Note Provider Nam e and Address Organization Details Recorded Time influenza, unspecified formulation 0 completed Not Available [facility] 04/14/2021 03:47:30 meningococcal MCV4, unspecified formulation 8 completed Not Available [facility] 04/14/2021 03:47:30 Influenza, split virus, quadrivalent, PF 7 completed Not Available [facility] 04/14/2021 03:47:30 Influenza, split virus, quadrivalent, PF 6 completed Not Available [facility] 04/14/2021 03:47:30 HPV9 6 completed Not Available [facility] 04/14/2021 03:47:31 HPV, quadrivalent 5 completed Not Available [facility] 04/14/2021 03:47:31 Influenza, live, quadrivalent, intranasal 5 completed Not Available [facility] 04/14/2021 03:47:31 HPV, quadrivalent 5 completed Not Available [facility] 04/14/2021 03:47:31 Influenza, split virus, quadrivalent, PF 4 completed Not Available [facility] 04/14/2021 03:47:31 Hep A, ped/adol, 2 dose 4 completed Not Available [facility] 04/14/2021 03:47:31 Influenza, live, quadrivalent, intranasal 3 completed Not Available [facility] 04/14/2021 03:47:31 meningococcal MCV4, unspecified formulation 3 completed Not Available [facility] 04/14/2021 03:47:31 Tdap 3 completed Not Available [facility] 04/14/2021 03:47:31 Hep A, ped/adol, 2 dose 3 completed Not Available [facility] 04/14/2021 03:47:31 varicella 3 completed Not Available [facility] 04/14/2021 03:47:31 influenza, unspecified formulation 8 completed Not Available [facility] 04/14/2021 03:47:31 influenza, unspecified formulation 1 completed Not Available [facility] 04/14/2021 03:47:31 varicella 4 completed Not Available [facility] 04/14/2021 03:47:31 MMR 2 completed Not Available [facility] 04/14/2021 03:47:31 pneumococcal conjugate PCV 7 2 completed Not Available [facility] 04/14/2021 03:47:32 pneumococcal conjugate PCV 7 2 completed Not Available [facility] 04/14/2021 03:47:32 pneumococcal conjugate PCV 7 2 completed Not Available [facility] 04/14/2021 03:47:32 Hib (PRP-T) 2 completed Not Available [facility] 04/14/2021 03:47:32 Hib (PRP-T) 2 completed Not Available [facility] 04/14/2021 03:47:32 Hib (PRP-T) 1 completed Not Available [facility] 04/14/2021 03:47:32 IPV 2 completed Not Available [facility] 04/14/2021 03:47:32 IPV 2 completed Not Available [facility] 04/14/2021 03:47:32 IPV 1 completed Not Available [facility] 04/14/2021 03:47:32 DTaP 2 completed Not Available [facility] 04/14/2021 03:47:32 DTaP 2 completed Not Available [facility] 04/14/2021 03:47:32 DTaP 2 completed Not Available [facility] 04/14/2021 03:47:32 DTaP 1 completed Not Available [facility] 04/14/2021 03:47:32 Hep B, unspecified formulation 2 completed Not Available [facility] 04/14/2021 03:47:32 Hep B, unspecified formulation 1 completed Not Available [facility] 04/14/2021 03:47:33 Hep B, unspecified formulation 1 completed Not Available [facility] 04/14/2021 03:47:33 MMR 6 completed Not Available [facility] 04/14/2021 03:47:33 IPV 6 completed Not Available [facility] 04/14/2021 03:47:33 DTaP 6 completed Not Available [facility] 04/14/2021 03:47:33 Influenza, live, trivalent, intranasal 2 completed Not Available [facility] 04/14/2021 03:47:33 Past Encounters Encounter ID Performer Location Encounter Start Date Encounter Closed Date Diagnosis/Indication Diagnosis SNOMED-CT Code Diagnosis ICD10 Code Diagnosis Note [id number] Delonte Ross, DO Main Office [address] [place] [address] 03/10/2022 15:36:57 03/20/2022 20:42:15 Left lower zone pneumonia 812541700 J18.1 Reactive a irway disease 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 06 J45.909 [id number] Renny Alaniz NP Main Office [address] [facility] [place] [address] 11/08/2022 16:07:57 12/07/2022 13:39:35 Upper respiratory infection 44830001 J06.9 Persistent cough 1928960 02 R05.3 Health Concerns Section Related Observation LastModified by Organization Detai ls LastModified Time None Recorded Concern Status LastModified by Organization Details LastModified Time None Recorded Advance Directives Directive None Recorded Payers Encounter Date Sequence Insurance Name Policy Number Policy Dumont Covered Member ID Dumont Member ID Guarantor Name 03/10/2022 1 RIANA Mansfield [id number] Juve Mansfield 11/08/2022 1 [employer] Juvephilip Mansfield [id number] Juve Mansfield Notes Date Note Type Note Provider Name and Address Organization Details Recorded Time 2 text/htm l 2 mo ago with sinusitis treasted with abxfor 3 weeks coughing phglegm, slight wheeze while sleepingno headache, no congestionif takes deep breath cough starts. denies any issues with congestion waking or other timescough is deep, dry, but produces phlegm yellow green Delonte Ross, DO [address], [place], [address], [facility] 03/10/2022 16:26:35 2 text/htm l Last week brother had strepTeledoc rx'd Amox x7 daysCough for the past weekRunny nose/congestionHas used steroid inhaler for cough and has helpedAfebrileHydrating well Renny Alaniz NP [address] [facility], [place], [address], [facility] 12/01/2022 21:40:53
--- OUTSIDE RECORDS SUMMARY | 2025-01-13 03:02 | XMS_ITS | Patient Health Summary ---
Author Organization [facility] Address [address] [place] [address] Care Team Providers Care Assistant Public Defender Name Role Phone Darrell Graff MD Primary Care Provider [phone] Note from [facility],non-owned Affiliates and Associated Physician Practices is amultiple site organization consisting of ambulatory clinics and hospital sitesin [place], [place], [place] and [place]. This disclosure is being madepursuant to the Care Everywhere program and may not contain all information available regarding this patient. Last updated 18.[facility] Allergies * Apple(Rash) -Medium Criticality Medications [...] 10/04/2013) Performed for Elevated liver enzymes * [id number] BLOOD(Performed 10/04/2013) Performed for Elevated liver enzymes * MRI LOWER EXT ANY JOINT NON CONTRAST RIGHT(Performed 11/08/2012) Performed for Knee pain * XR KNEE RIGHT 4VW OR MORE(Performed 10/23/2012) Performed for Knee pain * XR KNEE RIGHT 2VW OR LESS(Performed 10/13/2012) Results * HEMOGLOBIN A1C - POCT (IP) BEAKER (06/08/2018 10:42 AM CDT) Hemoglobin A1c POCT 5.2 3.4 - 6.1 % [facility] POCT TESTING QC Verified Yes Yes [facility] PO CT TESTING Blood BLOOD SPECIMEN / Unknown 06/08/2018 10:42 AM CDT Sheri Katz MD LAB - POINT OF CARE ORDERABLES Performing Organization Address City/State/[facility] Co de Phone Number [facility] POCT TESTING [address] [place] [address] * (ABNORMAL) COMPREHENSIVE METABOLIC PANEL (06/08/2018 10:37 AM CDT) Only the most recent of2 resultswithin the time period is included. Pathologist [facility] Glucose 80 70 - 105 mg/dL 06/08/2018 11:29 AM CDT [facility] Sodium 142 136 - 145 mmol/L 06/08/2018 11:29 AM CDT [facility] Potassium 4.3 3.5 - 5.1 mmol/L 06/08/2018 11:29 AM T [facility] Chloride 104 98 - 107 mmol/L 06/08/2018 11:29 AM T [facility] CO2 27 20 - 28 mmol/L 06/08/2018 11:29 AM CDT [facility] Calcium 10.29 9.08 - 10.48 mg/dL 06/08/2018 11:29 AM T [facility] Anion Gap 11 5 - 20 mmol/L 06/08/2018 11:29 AM T [facility] BUN 16.3 5.3 - 18.7 mg/dL 06/08/2018 11:29 AM [facility] Creatinine 0.81 0.61 - 1.07 mg/dL 06/08/2018 11:29 AM [facility] Alkaline Phosphatase 180 100 - 390 U/L 06/08/2018 11:29 AM [facility] ALT 85(H) 6 - 46 U/L 06/08/2018 11:29 AM [facility] AST 46(H) 3 - 35 U/L 06/08/2018 11:29 AM [facility] Protein Total 8.5(H) 6.3 - 8.2 gm/dL 06/08/2018 11:29 AM [facility] Albumin 4.8 3.3 - 4.9 gm/dL 06/08/2018 11:29 AM [facility] Bilirubin Total 0.6 0.3 - 1.2 mg/dL 06/08/2018 11:29 AM [facility] eGFR by MDRD mL/min/1.7 3m2 06/08/2018 11:29 AM [facility] Comment: eGFR calculations are not performed for children under 18 years old. eGFR by MDRD mL/min/1.7 3m2 06/08/2018 11:29 AM [facility] Comment: eGFR calculations are not performed for children under 18 years old. Blood BLOOD SPECIMEN / Unknown Venipuncture / Unknown 06/08/2018 10:37 AM CDT 06/08/2018 10:45 AM T Sheri Katz MD LAB - CHEMISTRY JUAN C GAGE [facility] Organization Address City/State/[facility] de Phone Number [facility] [address] [place] [address] * (ABNORMAL) LIPID PROFILE (06/08/2018 10:37 AM CDT) Cholesterol 253(H) <170 mg/dL 06/08/2018 11:30 AM [facility] Triglycerides 460(H) 46 - 227 mg/dL 06/08/2018 11:30 AM [facility] HDL Cholesterol 43 >40 mg/dL 8 11:30 AM [facility] LDL Calculated 118(H) <100 mg/dL 06/08/2018 11:30 AM CDT [facility] Comment: Unable to calculate LDL due to elevated Triglycerides, please consider ordering a Direct LDL. VLDL Calculated 92(H) 12 - 38 mg/dL 06/08/2018 11:30 AM CDT [facility] Comment: Unable to calculate LDL due to elevated Triglycerides, please consider ordering a Direct LDL. Chol HDL Ratio 5.9(H) <=5.0 06/08/2018 11:30 AM CDT [facility] Blood BLOOD SPECIMEN / Unknown Venipuncture / Unknown 06/08/2018 10:37 AM CDT 06/08/2018 10:45 AM CDT Narrative [facility] - 06/08/2018 11:30 AM CDT Lipid Profile Comment: Adult references ranges are the recommendation of the [place] [employer] , for those patients >18 [...] MD LAB - CHEMISTRY JUAN C GAGE [facility] Organization Address City/State/[facility] Co de Phone Number [facility] [address] [phone] * KNEE - LEFT (09/02/2016 7:48 PM [...] * US ABDOMEN LIMITED (10/12/2013 8:32 AM CONSULTANT EDUCATION) Anatomical Region Laterality Modality Abdomen Ultrasound 10/12/2013 8:42 AM CONSULTANT EDUCATION Impressions 10/12/2013 8:45 AM CONSULTANT EDUCATION Normal right upper quadrant sonography. Narrative 10/12/2013 8:45 AM CONSULTANT EDUCATION Right upper quadrant sonography dated 10/12/2013 8:32 [...] in length. Normal renal length for a 56-33-rxff-old is 10.4 cm with a standard deviation [...] in length. Normal renal length for a 00-81-skmk-old is 10.4 cm with a standard deviation of 0.9 cm the visualized great vessels appear grossly unremarkable. IMPRESSION Normal right upper quadrant sonography. Stevie Reed MD US ORDERABLES * C-REACTIVE PROTEIN (10/06/2013 9:02 AM [facility]) Pathologist [facility] C-Reactive Protein <0.20 <=0.50 mg/dL 10/06/2013 9:34 AM [facility] Blood BLOOD SPECIMEN / Unknown Lab Venipuncture / Unknown 10/06/2013 9:02 AM CONSULTANT EDUCATION 10/06/2013 9:07 AM [facility] Stevie Reed MD LAB - CHEMISTRY JUAN C GAGE [facility] Organization Address City/State/[facility] Co de Phone Number [facility] [address] [place] [address] * (ABNORMAL) CBC W AUTO DIFFERENTIAL (10/06/2013 9:02 AM [facility]) Pathologist [facility] WBC 3.8(L) 4.5 - 14.5 x10^9/L 10/06/2013 10:25 AM [facility] RBC 4.59 4.00 - 5.20 x10^12/L 10/06/2013 10:25 AM [facility] Hemoglobin 13.0 11.5 - 15.5 gm/dL 10/06/2013 10:25 AM [facility] Hematocrit 38.3 35.0 - 45.0 % 10/06/2013 10:25 AM [facility] MCV 83.4 77.0 - 95.0 fl 10/06/2013 10:25 AM [facility] MCH 28.3 25.0 - 33.0 pg 10/06/2013 10:25 AM [facility] MCHC 33.9 31.0 - 37.0 gm/dL 10/06/2013 10:25 AM [facility] Platelet Count 253 100 - 400 x10^9/L 10/06/2013 10:25 AM [facility] RDW-CV 12.8 11.5 - 14.0 % 10/06/2013 10:25 AM [facility] MPV 12.3(H) 6.0 - 9.5 fl 10/06/2013 10:25 AM [facility] Neutrophils % 38.1 24.0 - 66.0 % 10/06/2013 10:25 AM [facility] Lymphocytes % 49.6 22.0 - 61.0 % 10/06/2013 10:25 AM [facility] Monocytes % 7.0 3.0 - 15.0 % 10/06/2013 10:25 AM [facility] Eosinophils % 5.0 0.0 - 10.0 % 10/06/2013 10:25 AM [facility] Basophils % 0.3 % 10/06/2013 10:25 AM [facility] Immature Granulocytes 0.0 % 10/06/2013 10:25 AM [facility] Neutrophil Absolute 1.46 x10^9/L 10/06/2013 10:25 AM [facility] Lymphocytes Absolute 1.90 x10^9/L 10/06/2013 10:25 AM [facility] Monocytes Absolute 0.27 x10^9/L 10/06/2013 10:25 AM [facility] Eosinophils Absolute 0.19 x10^9/L 10/06/2013 10:25 AM [facility] Basophils Absolute 0.01 x10^9/L 10/06/2013 10:25 AM [facility] Immature Granulocytes Absolute 0.00 x10^9/L 10/06/2013 10:25 AM [facility] Blood BLOOD SPECIMEN / Unknown Lab Venipuncture / Unknown 10/06/2013 9:02 AM CONSULTANT EDUCATION 10/06/2013 9:14 AM CONSULTANT EDUCATION Stevie Reed MD LAB - HEMATOLOGY ORD ERAGAMALIEL [facility] [address] [place] [address] * GGT (10/06/2013 9:02 AM CONSULTANT EDUCATION) GGT 28 8 - 69 U/L 10/06/2013 9:36 AM CONSULTANT EDUCATION [facility] Blood BLOOD SPECIMEN / Unknown Lab Venipuncture / Unknown 10/06/2013 9:02 AM CONSULTANT EDUCATION 10/06/2013 9:07 AM CONSULTANT EDUCATION Stevie Reed MD LAB - CHEMISTRY JUAN C GAGE Performing Organization Address City/[facility] Co de Phone Number [facility] [address] [place] [address] * CK BLOOD (10/06/2013 9:02 AM CONSULTANT EDUCATION) CK 121 30 - 200 U/L 10/06/2013 9:37 AM CONSULTANT EDUCATION [facility] Blood BLOOD SPECIMEN / Unknown Lab Venipuncture / Unknown 10/06/2013 9:02 AM CONSULTANT EDUCATION 10/06/2013 9:07 AM CONSULTANT EDUCATION Stevie Reed MD LAB - CHEMISTRY JUAN C GAGE Performing Organization Address City/[facility]/ZIP Co de Phone Number [facility] [address] [place] [address] * BILIRUBIN DIRECT (10/06/2013 9:02 AM CONSULTANT EDUCATION) Bilirubin Direct 0.16 0.11 - 0.54 mg/dL 10/06/2013 9:36 AM CONSULTANT EDUCATION [facility] Blood BLOOD SPECIMEN / Unknown Lab Venipuncture / Unknown 10/06/2013 9:02 AM CONSULTANT EDUCATION 10/06/2013 9:07 AM CONSULTANT EDUCATION Stevie Reed MD LAB - CHEMISTRY JUAN C GAGE [facility] [address] [place] [id number] * TSH (10/06/2013 9:02 AM CONSULTANT EDUCATION) TSH 2.87 0.35 - 4.95 uIU/mL 10/06/2013 10:07 AM CONSULTANT EDUCATION [facility] Blood BLOOD SPECIMEN / Unknown Lab Venipuncture / Unknown 10/06/2013 9:02 AM CONSULTANT EDUCATION 10/06/2013 9:07 AM CONSULTANT EDUCATION Stevie Reed MD LAB - CHEMISTRY ORDNehemias GAGE Performing Organization Address [facility] Co de Phone Number [facility] [address] [place] [phone] * IGA BLOOD (10/06/2013 9:02 AM CONSULTANT EDUCATION) Pathologist [facility] IgA 144 63 - 484 mg/dL 10/06/2013 9:36 AM CONSULTANT EDUCATION [facility] Blood BLOOD SPECIMEN / Unknown Lab Venipuncture / Unknown 10/06/2013 9:02 AM CONSULTANT EDUCATION 10/06/2013 9:07 AM CONSULTANT EDUCATION Stevie Reed MD LAB - CHEMISTRY JUAN C GAGE Performing Organization Address [facility] de Phone Number [facility] [address] [place] [phone] * TISSUE TRANSGLUTAMINASE AB IGA (10/04/2013 3:33 PM CONSULTANT EDUCATION) Tissue Transglutaminase (tTG) Ab, IgA 4 0 - 19 Units 10/06/2013 2:19 PM CONSULTANT EDUCATION [facility] Comment: INTERPRETIVE INFORMATION: Tissue Transglutaminase (tTG) Antibody, [...] Lab Venipuncture / Unknown 10/04/2013 3:33 PM CONSULTANT EDUCATION 10/04/2013 3:48 PM CONSULTANT EDUCATION Stevie Reed MD LAB - SEROLOGY ORDER JACOBY Performing Organization Address [facility] Co de Phone Number [facility] [address] [place] [address] * CERULOPLASMIN (10/04/2013 3:33 PM CONSULTANT EDUCATION) Pathologist [facility] Ceruloplasmin 26 20 - 43 mg/dL 10/06/2013 10:25 AM CONSULTANT EDUCATION [facility] Comment: REFERENCE INTERVAL: Ceruloplasmin Access complete set of age- and/or gender-specific reference intervals for this test in the [facility] Test Directory ([employer]). Blood specimen (specimen) BLOOD SPECIMEN / Unknown Lab Venipuncture / Unknown 10/04/2013 3:33 PM CONSULTANT EDUCATION 10/04/2013 3:48 PM CONSULTANT EDUCATION Stevie Reed MD LAB - CHEMISTRY ORDE RABLES Performing Organization Address [facility] de Phone Number [facility] [address] [place] [address] * F-ACTIN (SMOOTH MUSCLE) ANTIBODY W REFLEX TITER (10/04/2013 3:17 PM CONSULTANT EDUCATION) Pathologist [facility] F-Actin Antibody IgG 9 0 - 19 Units 10/06/2013 3:35 PM CONSULTANT EDUCATION [facility] Comment: If F-Actin (Smooth Muscle) Antibody, IgG [...] Lab Venipuncture / Unknown 10/04/2013 3:17 PM CONSULTANT EDUCATION 10/04/2013 3:29 PM CONSULTANT EDUCATION Stevie Reed MD LAB - SEROLOGY ORDER JACOBY [facility] [address] [place] [address] * CAROL BLOOD SCREEN W/REFLEX TITER (10/04/2013 3:17 PM CONSULTANT EDUCATION) CAROL Negative Negative 10/05/2013 9:52 AM CONSULTANT EDUCATION [facility] Blood BLOOD SPECIMEN / Unknown Lab Venipuncture / Unknown 10/04/2013 3:17 PM CONSULTANT EDUCATION 10/04/2013 3:29 PM CONSULTANT EDUCATION Stevie Reed MD LAB - CHEMISTRY ORDE RABLORA Performing Organization Address City/[facility]/ZIP Co de Phone Number [facility] [address] [place] [address] * MICROSOMAL ANTIBODY LIVER/KIDNEY (10/04/2013 3:17 PM CONSULTANT EDUCATION) Liver/Kidney Microsomal Antibody IgG <1:20 <1:20 10/06/2013 4:41 PM CONSULTANT EDUCATION [facility] Comment: INTERPRETIVE INFORMATION: Okzuq-Rksdii-Wxnbtgjhu Abs, IgG Liver-Kidney Microsome IgG antibody (anti-LKM), as detected by indirect immunofluorescent antibody (IFA) techniques, may be observed in patients with autoimmune hepatitis type 2 (AIH-2), AIH-2 associated with autoimmune iialdtktrnyblhlzad-dcvcswsphrm-hweqjqnrvo dystrophy (APECED), viral hepatitis C or D, and some forms of drug-induced hepatitis. This IFA does not differentiate among the four types of LKM antibodies (LKM-1, LKM-2, LKM-3, and a fourth type that recognizes CY and CY antigens). Of these, anti-LKM-1 (cytochrome [id number]) IgG antibodies are considered specific for AIH-2. Test developed and characteristics determined by [facility] [employer]. See Compliance Statement D: [email or web address] Blood specimen (specimen) BLOOD SPECIMEN / Unknown Lab Venipuncture / Unknown 10/04/2013 3:17 PM CONSULTANT EDUCATION 10/04/2013 3:29 PM CONSULTANT EDUCATION Stevie Reed MD LAB - CHEMISTRY JUAN C GAGE Performing Organization Address [facility] Co de Phone Number [facility] [address] [place] [address] * VCDNM-0-WFWSUQAQUJG BLOOD (10/04/2013 3:17 PM CONSULTANT EDUCATION) Rxowh-3-Qrvyri ypsin 127 100 - 200 mg/dL 10/06/2013 9:24 AM CONSULTANT EDUCATION [facility] Comment:To convert to umol/L , multiply mg/dL by 0.185 Blood specimen (specimen) BLOOD SPECIMEN / Unknown Lab Venipuncture / Unknown 10/04/2013 3:17 PM CONSULTANT EDUCATION 10/04/2013 3:29 PM CONSULTANT EDUCATION Stevie Reed MD LAB - CHEMISTRY JUAN C GAGE Performing Organization Address [facility] Co de Phone Number [facility] [address] [place] [address] * PTT (10/04/2013 3:17 PM CONSULTANT EDUCATION) PTT 29.0 23.0 - 36.0 sec 10/04/2013 3:56 PM CONSULTANT EDUCATION [facility] Blood BLOOD SPECIMEN / Unknown Lab Venipuncture / Unknown 10/04/2013 3:17 PM CONSULTANT EDUCATION 10/04/2013 3:29 PM CONSULTANT EDUCATION Stevie Reed MD LAB - COAGULATION OR DERABLES Performing Organization Address City/[facility] Co de Phone Number [facility] [address] [place] [address] * PT-INR (10/04/2013 3:17 PM CONSULTANT EDUCATION) PT 12.8 12.2 - 14.5 sec 10/04/2013 3:56 PM CONSULTANT EDUCATION [facility] INR 1.0 0.8 - 1.2 10/04/2013 3:56 PM CONSULTANT EDUCATION [facility] Blood BLOOD SPECIMEN / Unknown Lab Venipuncture / Unknown 10/04/2013 3:17 PM CONSULTANT EDUCATION 10/04/2013 3:29 PM CONSULTANT EDUCATION Stevie Reed MD LAB - COAGULATION OR DERABLES Performing Organization Address [facility] Co de Phone Number [facility] [address] [place] [address] * HEPATITIS SCREEN ACUTE (10/04/2013 3:17 PM CONSULTANT EDUCATION) HAV Antibody IgM Non Reactive Non Reactive 10/04/2013 4:56 PM CONSULTANT EDUCATION [facility] HBsAg Non Reactive Non Reactive 10/04/2013 4:56 PM CONSULTANT EDUCATION [facility] HBsAb Non Reactive Non Reactive 10/04/2013 4:56 PM CONSULTANT EDUCATION [facility] HBc Antibody IgM Non Reactive Non Reactive 10/04/2013 4:56 PM CONSULTANT EDUCATION [facility] HCV Antibody Screen Non Reactive Non Reactive 10/04/2013 4:56 PM CONSULTANT EDUCATION [facility] Blood BLOOD SPECIMEN / Unknown Lab Venipuncture / Unknown 10/04/2013 3:17 PM CONSULTANT EDUCATION 10/04/2013 3:29 PM CONSULTANT EDUCATION Narrative [facility] - 10/04/2013 4:56 PM CONSULTANT EDUCATION Nonreactive - Antibodies to HCV were not detected, result does not exclude early acute HCV infection. Stevie Reed MD LAB - CHEMISTRY ORDE RABLES Performing Organization Address [facility] Co de Phone Number [facility] [address] [place] [address] * MRI LOWER EXT ANY JOINT NON CONTRAST RIGHT (11/08/2012 6:28 PM CONSULTANT EDUCATION) Anatomical Region Laterality Modality Lower Extremity Magnetic Resonan ce 11/09/2012 9:24 AM CONSULTANT EDUCATION Impressions 11/09/2012 9:24 AM CONSULTANT EDUCATION 1. Small benign appearing osteochondroma arising from the medial aspect of the distal femoral diametaphysis. 2. Small Mansfield's cyst. Narrative 11/09/2012 9:24 AM CONSULTANT EDUCATION MRI of the right knee performed November [...] KNEE 4+ VW RIGHT (10/23/2012 1:49 PM CONSULTANT EDUCATION) Anatomical Region Laterality Modality Lower Extremity Radiographic Chelsea ging 10/23/2012 1:55 PM CONSULTANT EDUCATION Impressions 10/23/2012 3:26 PM CONSULTANT EDUCATION No acute fracture or subluxation. Medial osteochondroma of the distal femur. Report dictated by Reynaldo Mora MD. Narrative 10/23/2012 3:26 PM CONSULTANT EDUCATION Examination: Right knee, 4 views Date: October [...] OR 2 VW RIGHT (10/13/2012 2:25 PM CONSULTANT EDUCATION) Anatomical Region Laterality Modality Lower Extremity Radiographic Chelsea ging 10/13/2012 6:29 PM CONSULTANT EDUCATION Impressions 10/13/2012 6:29 PM CONSULTANT EDUCATION No osseous abnormality This small joint effusion. Narrative 10/13/2012 6:29 PM CONSULTANT EDUCATION Right knee, 2 views 10/13/2012 Small joint [...] Diehl MD DIAGNOSTIC IMAGING ORDERABLES Care Teams Assistant Public Defender Relationship Specialty Start Date End Date Darrell Graff MD [address] [place] [address] [place] [phone] PCP - General Pediatrics 10/13/12
--- OUTSIDE RECORDS SUMMARY | 2025-01-13 03:02 | XMS_ITS | Clinical Summary ---
Author Organization [facility] Address [address] [place] [address] Care Team Providers Care Taxi Driver Supervisor Name Role Phone Darrell Graff MD Primary Care Provider [phone]- [phone] Source Comments [facility],non-owned Affiliates and Associated Physician Practices is amultiple site organization consisting of ambulatory clinics and hospital sitesin [place], [place], [place] and [place]. This disclosure is being madepursuant to the Care Everywhere program and may not contain all information available regarding this patient. Last updated 18.[facility] Allergies Active Allergy Reactions Criticality Noted Date [...] HEPATITIS SCREEN ACUTE Routine 10/04/2013 3:17 PM WHITE SUGAR SUPERVISOR Elevated liver enzymes from Last 3 Months or Most Recently Relevant to Health Maintenance Results * HEPATITIS SCREEN ACUTE (10/04/2013 3:17 PM WHITE SUGAR SUPERVISOR) HAV Antibody IgM Non Reactive Non Reactive 10/04/2013 4:56 PM WHITE SUGAR SUPERVISOR [facility] HBsAg Non Reactive Non Reactive 10/04/2013 4:56 PM WHITE SUGAR SUPERVISOR [facility] HBsAb Non Reactive Non Reactive 10/04/2013 4:56 PM [facility] HBc Antibody IgM Non Reactive Non Reactive 10/04/2013 4:56 PM [facility] HCV Antibody Screen Non Reactive Non Reactive 10/04/2013 4:56 PM [facility] Blood BLOOD SPECIMEN / Unknown Lab Venipuncture / Unknown 10/04/2013 3:17 PM WHITE SUGAR SUPERVISOR 10/04/2013 3:29 PM WHITE SUGAR SUPERVISOR Narrative [facility] - 10/04/2013 4:56 PM WHITE SUGAR SUPERVISOR Nonreactive - Antibodies to HCV were not detected, result does not exclude early acute HCV infection. Stevie Reed MD LAB - CHEMISTRY JUAN C GAGE [facility] [address] [place] [address] from Last 3 Months or Most Recently Relevant to Health Maintenance Care Teams Taxi Driver Supervisor Relationship Specialty Start Date End Date Darrell Graff MD [address] [place] [address] [place] [phone] PCP - General Pediatrics 10/13/12
[2025-01-13 03:27] VITALS: BP 151/93; PULSE 80; RESP 14; O2SAT 99
== END 2025-01-13 03:42 | disposition home or self-care (01) ==
PROVIDERS: Emergency Provider Emergency Medicine
DX: N13.2 Hydronephrosis with renal and ureteral calculous obstruction (principal)
CPT/HCPCS: 36415; 74176; 80053; 81001; 85025; 96374; 96375; 99284; J1885; J2405